=== PATIENT | female | born 1960 | race Caucasian/White ===

== ENCOUNTER 2017-09-05 14:51 | Inpatient (IN) | payer MEDICARE, OTHER ==
--- NOTE | 2017-09-05 15:19 | ED Physician Chart ---
ED Chief Complaint/HPI - Patient Information Date Seen:: 09/05/17 Time Seen:: 15:18 Chief Complaint:: Depression and suicidal History of Present Illness:: 57 yo female was brought from [facility] to ER for evaluation of increased depression with suicidal ideation. Allergies:: Allergies Allergy/AdvReac Type Severity Reaction Status Date / Time haloperidol [From Haldol] Allergy Verified 09/05/17 14:59 Penicillins Allergy Verified 09/05/17 14:59 Vitals:: Vital Signs - 8 hr 09/05/17 14:59 Temp 97.7 F HR 86 RR 18 BP 117/49 O2 Sat % 94 ED Review of Systems - Review of Systems General/Constitutional: No fever Skin: No bruising Head: No headache Eyes: No pain ENT: No nasal drainage Neck: No neck pain Cardio Vascular: No chest pain Pulmonary: No SOB GI: No nausea, No vomiting Psychiatric: Prior psych history, Depression Neurological: No focal symptoms ED Past Medical History - Past Medical History Past Medical History: Asthma/COPD, PUD/GERD, Dementia, Other (osteoporosis) Social History: Smoker, No Alcohol, No Drug Use Psychiatricy History: Schizophrenia, Bipolar, Dementia Family Medical History - Family Member Mother History Unknown: Yes ED Physical Exam - Physical Examination General/Constitutional: Awake Head: Atraumatic Eyes: PERRL Skin: No ecchymosis ENMT: Nasal exam nl Neck: No nuchal rigidity Respiratory: Clear to Auscultation Cardio Vascular: RRR, No murmur, gallop, rubs, NL S1 S2 GI: No tenderness/rebounding/guarding Extremities: Full ROM Neuro/Psych: No focal deficits ED Labs/Radiology/EKG Results - Lab Results Results: Laboratory Last Values WBC 6.9 Th/cmm (4.8-10.8) 09/05/17 15:33 RBC 4.36 Mil/cmm (3.80-5.10) 09/05/17 15:33 Hgb 13.8 gm/dL (12-16) 09/05/17 15:33 Hct 40.5 % (41.0-60) L 09/05/17 15:33 MCV 92.9 fl (81-100) 09/05/17 15:33 MCH 31.6 pg (27.0-31.0) H 09/05/17 15:33 MCHC Differential 34.0 pg (28.0-36.0) 09/05/17 15:33 RDW 12.3 % (11.5-20.0) 09/05/17 15:33 Plt Count 129 Th/cmm (150-400) L 09/05/17 15:33 MPV 9.1 fl 09/05/17 15:33 Neutrophils % 71.4 % (40.0-80.0) 09/05/17 15:33 Lymphocytes % 20.7 % (20.0-50.0) 09/05/17 15:33 Monocytes % 6.4 % (2.0-10.0) 09/05/17 15:33 Eosinophils % 1.5 % (0.0-5.0) 09/05/17 15:33 Basophils % 0.0 % (0.0-2.0) 09/05/17 15:33 Sodium 130 mEq/L (136-145) L 09/05/17 15:33 Potassium 4.3 mEq/L (3.5-5.1) 09/05/17 15:33 Chloride 98 mEq/L (98-107) 09/05/17 15:33 Carbon Dioxide 26.3 mEq/L (21.0-31.0) 09/05/17 15:33 Anion Gap 10.0 (7.0-16.0) 09/05/17 15:33 BUN 9 mg/dL (7-25) 09/05/17 15:33 Creatinine 0.3 mg/dL (0.6-1.2) L 09/05/17 15:33 Est GFR ( Amer) > 60.0 ml/min (>90) 09/05/17 15:33 Est GFR (Non-Af Amer) > 60.0 ml/min 09/05/17 15:33 BUN/Creatinine Ratio 30.0 09/05/17 15:33 Glucose 107 mg/dL (70-105) H 09/05/17 15:33 Calcium 9.6 mg/dL (8.6-10.3) 09/05/17 15:33 Total Bilirubin 0.3 mg/dL (0.3-1.0) 09/05/17 15:33 AST 21 U/L (13-39) 09/05/17 15:33 ALT 27 U/L (7-52) 09/05/17 15:33 Alkaline Phosphatase 139 U/L (34-104) H 09/05/17 15:33 Troponin I < 0.01 ng/mL (0.01-0.05) L 09/05/17 15:33 B-Natriuretic Peptide 18.5 pg/mL (5.0-100.0) 09/05/17 15:33 Total Protein 6.6 gm/dL (6.0-8.3) 09/05/17 15:33 Albumin 3.7 gm/dL (3.7-5.3) 09/05/17 15:33 Globulin 2.9 gm/dL 09/05/17 15:33 Albumin/Globulin Ratio 1.3 (1.0-1.8) 09/05/17 15:33 TSH 1.45 uIU/ml (0.34-5.60) 09/05/17 15:33 Urine Source RANDOM 09/05/17 15:42 Urine Color YELLOW 09/05/17 15:42 Urine Clarity CLOUDY (CLEAR) H 09/05/17 15:42 Urine pH 7.0 (4.6 - 8.0) 09/05/17 15:42 Ur Specific [place] 1.015 (1.005-1.030) 09/05/17 15:42 Urine Protein TRACE mg/dL (NEGATIVE) 09/05/17 15:42 Urine Glucose (UA) NEGATIVE mg/dL (NEGATIVE) 09/05/17 15:42 Urine Ketones NEGATIVE mg/dL (NEGATIVE) 09/05/17 15:42 Urine Blood LARGE (NEGATIVE) H 09/05/17 15:42 Urine Nitrate POSITIVE (NEGATIVE) H 09/05/17 15:42 Urine Bilirubin NEGATIVE (NEGATIVE) 09/05/17 15:42 Urine Urobilinogen 0.2 E.U./dL (0.2 - 1.0) 09/05/17 15:42 Ur Leukocyte Esterase LARGE (NEGATIVE) H 09/05/17 15:42 Urine RBC 25-50 /hpf (0-5) H 09/05/17 15:42 Urine WBC 50-100 /hpf (0-5) H 09/05/17 15:42 Ur Epithelial Cells OCCASIONAL /lpf (FEW) 09/05/17 15:42 Urine Bacteria MANY /hpf (NONE SEEN) H 09/05/17 15:42 Valproic Acid 29.7 ug/mL (50.0-100.0) L 09/05/17 15:33 - Radiology Results Results: CXR: No focal consolidation. Cardiomegaly. Left upper mediastinal soft tissue density - EKG Interpretations EKG Time:: 15:34 Rate & Rhythm: 76 bpm, Sinus rhythm [place]: normal P axis Intervals: IL 167, QRSD 106, QT 397 Comments:: non specific ST changes ED Assessment - Assessment General Assessment: UTI Hyponatremia COPD Abnormal CXR GERD Osteoporosis Dementia Assessment/Comments:: CBC, CMP, UA CXR, EKG Rocephin 1g IV NS 1L IV bolus Cleared for geropsych admission ED Septic Shock - . Is Septic Shock (SBP<90, OR Lactate>4 mmol\L) present?: No - <6hrs of presentation: Vital Signs: Vital Signs - 8 hr 09/05/17 14:59 Temp 97.7 F HR 86 RR 18 BP 117/49 O2 Sat % 94 ED Reassessment (Disposition) - Reassessment Reassessment Condition:: Improved - Patient Disposition Discharge/Transfer:: Gerprabhakar w/in this hosp Admitting Medical Physician:: Umesh De La Cruz Admitting Psych Physician:: Arturo Manriquez ED Discharge Plan - Patient Disposition Admit/Discharge/Transfer: Acute Care w/in this hosp Condition at Disposition: Stable
[2017-09-05 15:52] LABS: URINE MICROSCOPIC INDICATED? YES; URINE SOURCE RANDOM
[2017-09-05 15:54] LABS: URINE BILIRUBIN NEGATIVE (NEGATIVE); URINE BLOOD LARGE (NEGATIVE); URINE GLUCOSE (UA) NEGATIVE (NEGATIVE); URINE KETONE NEGATIVE (NEGATIVE); URINE LEUKOCYTE ESTERASE LARGE (NEGATIVE); URINE NITRATE POSITIVE (NEGATIVE); URINE PROTEIN TRACE mg/dL (NEGATIVE); URINE UROBILINOGEN 0.2 E.U./dL (0.2 - 1.0)
[2017-09-05 15:56] LABS: % EOSINOPHILS 1.5 % (0.0-5.0); % LYMPHOCYTES 20.7 % (20.0-50.0); % MONOCYTES 6.4 % (2.0-10.0); % NEUTROPHILS 71.4 % (40.0-80.0); EOSINOPHILE ABSOLUTE 0.1 Th/cmm (0.1-0.4); HEMATOCRIT 40.5 % (41.0-60); HEMOGLOBIN 13.8 gm/dL (12-16); LYMPHOCYTE ABSOLUTE 1.4 Th/cmm (1.5-3.0); MEAN CELL VOLUME 92.9 fl (81-100); MEAN CORPUSCULAR HEMOGLOBIN 31.6 pg (27.0-31.0); MEAN PLATELET VOLUME 9.1 fl; MONOCYTE ABSOLUTE 0.4 Th/cmm (0.3-1.0); PLATELET COUNT 129 Th/cmm (150-400); RED BLOOD COUNT 4.36 Mil/cmm (3.80-5.10); RED CELL DISTRIBUTION WIDTH 12.3 % (11.5-20.0); WHITE BLOOD COUNT 6.9 Th/cmm (4.8-10.8)
[2017-09-05 16:00] LABS: URINE CLARITY CLOUDY (CLEAR); URINE COLOR YELLOW
[2017-09-05 16:06] LABS: ALB/GLOB RATIO 1.3 (1.0-1.8); ALBUMIN 3.7 gm/dL (3.7-5.3); ALKALINE PHOSPHATASE 139 U/L (34-104); BILIRUBIN,TOTAL 0.3 mg/dL (0.3-1.0); BUN - UREA NITROGEN 9 mg/dL (7-25); CALCIUM SERUM 9.6 mg/dL (8.6-10.3); CARBON DIOXIDE 26.3 mEq/L (21.0-31.0); CHLORIDE 98 mEq/L (98-107); CREATININE - SERUM 0.3 mg/dL (0.6-1.2); GFR AFRICAN-AMERICAN > 60.0 ml/min (>90); GFR NON AFRICAN-AMERICAN > 60.0 ml/min; GLUCOSE 107 mg/dL (70-105); POTASSIUM SERUM 4.3 mEq/L (3.5-5.1); SGOT 21 U/L (13-39); SGPT/ALT 27 U/L (7-52); SODIUM SERUM 130 mEq/L (136-145); TOTAL PROTEIN,SERUM 6.6 gm/dL (6.0-8.3)
[2017-09-05 16:11] LABS: URINE RBC 25-50 /hpf (0-5)
[2017-09-05 16:12] LABS: URINE BACTERIA MANY /hpf (NONE SEEN); URINE EPITHELIAL CELLS OCCASIONAL /lpf (FEW); URINE WBC 50-100 /hpf (0-5)
[2017-09-05] MEDS ORDERED: Sodium Chloride 0.9% 1,000 ML IV ONE (16:12)
[2017-09-05] MEDS ORDERED: cefTRIAXone 1 GM in Sodium Chloride 0.9% 50 ML IV ONE (16:12)
[2017-09-05 18:35] VITALS: BP 140/69
[2017-09-05] MEDS ORDERED: Magnesium Hydroxide (MOM) 30 mL UDC PO PRN ×2 (18:37→21:23)
[2017-09-05] MEDS ORDERED: Maalox 30 mL Cup PO PRN (18:37)
[2017-09-05] MEDS ORDERED: APAP/Codeine 300 mg/30 mg Tab PO PRN ×2 (21:23)
[2017-09-05] MEDS ORDERED: Non-Formulary Item 1 EA (Albuterol Sulfate [Ventolin Hfa] 1 PUFF) IH PRN (21:23)
[2017-09-05] MEDS ORDERED: Albuterol/Ipratropium Neb 3 ML AERS HHN PRN (21:23)
[2017-09-05] MEDS ORDERED: [UNRECOGNIZED DRUG - OTHER] TP PRN (21:28)
[2017-09-06] MEDS ORDERED: Multivitamin Tab PO SCH (09:00)
--- NOTE | 2017-09-06 09:28 | Diagnostic Imaging Report ---
CHEST X-RAY: AP view INDICATION: Shortness of breath COMPARISON: None FINDINGS: Mild chronic lung changes are seen with no focal consolidation or effusions. Prominent soft tissue density of the left upper mediastinal border is noted. Mild cardiomegaly is noted. Degenerative changes of the spine are noted with scoliosis. IMPRESSION: No focal consolidation identified Prominent soft tissue density of the left upper mediastinal region. This may be due to an aortic aneurysm or other mediastinal mass lesions. Recommend further assessment with CT of the chest with IV contrast.
[2017-09-06] MEDS ORDERED: Menthol/Zinc Oxide Oint 113gm Tube TP PRN (11:00)
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
--- NOTE | 2017-09-06 17:52 | General Progress Note ---
Subjective - Review of Systems Service Date: 09/06/17 Events since last encounter: consult dictated talked to sister in [place] via phone' known about aneurysm 3 years ago, claimed she was not told about surgery will try transfer to tertiary facility Objective - Results Result Diagrams: 09/05/17 15:33 09/05/17 15:33 Recent Labs: Laboratory Last Values WBC 6.9 Th/cmm (4.8-10.8) 09/05/17 15:33 RBC 4.36 Mil/cmm (3.80-5.10) 09/05/17 15:33 Hgb 13.8 gm/dL (12-16) 09/05/17 15:33 Hct 40.5 % (41.0-60) L 09/05/17 15:33 MCV 92.9 fl (81-100) 09/05/17 15:33 MCH 31.6 pg (27.0-31.0) H 09/05/17 15:33 MCHC Differential 34.0 pg (28.0-36.0) 09/05/17 15:33 RDW 12.3 % (11.5-20.0) 09/05/17 15:33 Plt Count 129 Th/cmm (150-400) L 09/05/17 15:33 MPV 9.1 fl 09/05/17 15:33 Neutrophils % 71.4 % (40.0-80.0) 09/05/17 15:33 Lymphocytes % 20.7 % (20.0-50.0) 09/05/17 15:33 Monocytes % 6.4 % (2.0-10.0) 09/05/17 15:33 Eosinophils % 1.5 % (0.0-5.0) 09/05/17 15:33 Basophils % 0.0 % (0.0-2.0) 09/05/17 15:33 Sodium 130 mEq/L (136-145) L 09/05/17 15:33 Potassium 4.3 mEq/L (3.5-5.1) 09/05/17 15:33 Chloride 98 mEq/L (98-107) 09/05/17 15:33 Carbon Dioxide 26.3 mEq/L (21.0-31.0) 09/05/17 15:33 Anion Gap 10.0 (7.0-16.0) 09/05/17 15:33 BUN 9 mg/dL (7-25) 09/05/17 15:33 Creatinine 0.3 mg/dL (0.6-1.2) L 09/05/17 15:33 Est GFR ( Amer) > 60.0 ml/min (>90) 09/05/17 15:33 Est GFR (Non-Af Amer) > 60.0 ml/min 09/05/17 15:33 BUN/Creatinine Ratio 30.0 09/05/17 15:33 Glucose 107 mg/dL (70-105) H 09/05/17 15:33 Calcium 9.6 mg/dL (8.6-10.3) 09/05/17 15:33 Total Bilirubin 0.3 mg/dL (0.3-1.0) 09/05/17 15:33 AST 21 U/L (13-39) 09/05/17 15:33 ALT 27 U/L (7-52) 09/05/17 15:33 Alkaline Phosphatase 139 U/L (34-104) H 09/05/17 15:33 Troponin I < 0.01 ng/mL (0.01-0.05) L 09/05/17 15:33 B-Natriuretic Peptide 18.5 pg/mL (5.0-100.0) 09/05/17 15:33 Total Protein 6.6 gm/dL (6.0-8.3) 09/05/17 15:33 Albumin 3.7 gm/dL (3.7-5.3) 09/05/17 15:33 Globulin 2.9 gm/dL 09/05/17 15:33 Albumin/Globulin Ratio 1.3 (1.0-1.8) 09/05/17 15:33 TSH 1.45 uIU/ml (0.34-5.60) 09/05/17 15:33 Urine Source RANDOM 09/05/17 15:42 Urine Color YELLOW 09/05/17 15:42 Urine Clarity CLOUDY (CLEAR) H 09/05/17 15:42 Urine pH 7.0 (4.6 - 8.0) 09/05/17 15:42 Ur Specific [place] 1.015 (1.005-1.030) 09/05/17 15:42 Urine Protein TRACE mg/dL (NEGATIVE) 09/05/17 15:42 Urine Glucose (UA) NEGATIVE mg/dL (NEGATIVE) 09/05/17 15:42 Urine Ketones NEGATIVE mg/dL (NEGATIVE) 09/05/17 15:42 Urine Blood LARGE (NEGATIVE) H 09/05/17 15:42 Urine Nitrate POSITIVE (NEGATIVE) H 09/05/17 15:42 Urine Bilirubin NEGATIVE (NEGATIVE) 09/05/17 15:42 Urine Urobilinogen 0.2 E.U./dL (0.2 - 1.0) 09/05/17 15:42 Ur Leukocyte Esterase LARGE (NEGATIVE) H 09/05/17 15:42 Urine RBC 25-50 /hpf (0-5) H 09/05/17 15:42 Urine WBC 50-100 /hpf (0-5) H 09/05/17 15:42 Ur Epithelial Cells OCCASIONAL /lpf (FEW) 09/05/17 15:42 Urine Bacteria MANY /hpf (NONE SEEN) H 09/05/17 15:42 Valproic Acid 29.7 ug/mL (50.0-100.0) L 09/05/17 15:33 - Physical Exam Vitals and I&O: Vital Signs Temp 97.6 F 09/06/17 15:54 Pulse 92 09/06/17 15:54 Resp 20 09/06/17 15:54 BP 115/58 09/06/17 15:54 Pulse Ox 97 09/06/17 15:54 Intake & Output 09/05/17 09/06/17 09/06/17 18:59 06:59 18:59 Intake Total 480 1500 Balance 480 1500 Weight (lbs) 70.307 kg Intake: Oral 480 1500 Other: # Voids 2 4 # Bowel Movements 1 Weight Source Estimated Active Medications: Current Medications Acetaminophen (Tylenol) 650 mg PO Q4HR PRN PRN Reason: Mild Pain / Temp above 100 Stop: 11/04/17 18:36 Acetaminophen (Tylenol) 325 mg PO Q4HR PRN PRN Reason: MILD PAIN Stop: 11/04/17 21:22 Acetaminophen/Codeine Phosphate (Tylenol W/Codeine #3) 1 tab PO Q4HR PRN PRN Reason: MOD PAIN Stop: 11/04/17 21:22 Acetaminophen/Codeine Phosphate (Tylenol W/Codeine #3) 2 tab PO Q4HR PRN PRN Reason: Severe Pain Stop: 11/04/17 21:22 Al Hydrox/Mg Hydrox/Simethicone (Maalox) 30 ml PO Q4HR PRN PRN Reason: GI DISTRESS Stop: 11/04/17 18:36 Albuterol/Ipratropium (Duoneb Neb) 3 ml HHN Q4HRT PRN PRN Reason: SOB/COPD Stop: 11/04/17 21:22 Calamine/Phenol (Calmoseptine) 1 appl TP QSHIFT PRN PRN Reason: INCONTINENCE MAINTENANCE Stop: 11/05/17 10:59 Docusate Sodium (Colace) 100 mg PO BID [facility] Stop: 11/05/17 08:59 Last Admin: 09/06/17 17:24 Dose: Not Given Famotidine (Pepcid) 20 mg PO BID [facility] Stop: 11/05/17 08:59 Last Admin: 09/06/17 17:22 Dose: 20 mg Gabapentin (Neurontin) 600 mg PO Q6HR NAS Stop: 11/05/17 00:00 Last Admin: 09/06/17 17:22 Dose: 600 mg Lorazepam (Ativan) 0.5 mg PO Q4H PRN; Protocol PRN Reason: Anxiety Stop: 11/04/17 18:36 Lorazepam (Ativan) 2 mg IVP Q4HR PRN; Protocol PRN Reason: Agitation Stop: 11/05/17 17:46 Magnesium Hydroxide (Milk Of Magnesia) 30 ml PO HS PRN PRN Reason: Constipation Magnesium Hydroxide (Milk Of Magnesia) 30 ml PO HS PRN PRN Reason: Constipation Stop: 11/04/17 21:22 Methocarbamol (Robaxin) 500 mg PO TID [facility] Stop: 11/05/17 08:59 Last Admin: 09/06/17 13:21 Dose: 500 mg Multivitamins/Vitamin C (Theragran) 1 tab PO DAILY [facility] Stop: 11/05/17 08:59 Last Admin: 09/06/17 09:36 Dose: 1 tab Risperidone (Risperdal) 2 mg PO BID [facility]; Protocol Stop: 11/05/17 16:59 Last Admin: 09/06/17 17:21 Dose: 2 mg Senna (Senna) 17.2 mg PO BID [facility] Stop: 11/05/17 08:59 Last Admin: 09/06/17 17:24 Dose: Not Given Valproate Sodium (Depakene) 250 mg PO BID NAS; Protocol Stop: 11/05/17 08:59 Last Admin: 09/06/17 17:21 Dose: 250 mg Zolpidem Tartrate (Ambien) 5 mg PO HS PRN PRN Reason: Insomnia Stop: 11/04/17 18:36 Assessment/Plan - Problem List Patient Problems: All Active Problems DEPRESSION WITH SUICIDAL IDEATION (Acute)
--- NOTE | 2017-09-06 18:07 | History & Physical ---
ADMIT DATE: 09/06/2017 VASCULAR CONSULTATION REFERRING PHYSICIAN: Dr. Manriquez. REASON FOR CONSULTATION: Thoracic aortic aneurysm. Thank you for referring this patient to me. HISTORY OF PRESENT ILLNESS: This is a 57-year-old female who comes from a [facility] and transferred here because of depression and suicidal ideations. Laboratory studies on admission are essentially normal except for large blood clots in the urine. The patient underwent a chest x-ray and a CT scan of the chest without IV contrast and this shows a 6 cm ascending aortic aneurysm. The patient smokes cigarettes. The sister was called in [place] and had been told about this condition 3 years ago. She had not been told about doing any surgical vascular intervention on this at all. The patient denies any chest pain, likewise. CURRENT MEDICATIONS: Albuterol, famotidine, gabapentin, lorazepam, methocarbamol, Risperdal, Ambien. PHYSICAL EXAMINATION: VITAL SIGNS: Blood pressure is 115/60. Heart rate is normal. GENERAL: The patient insists on smoking. Seems to be alert, but confused. She denied having been told about this aneurysm in the past. The sister is willing to sign a consent power of bull gang worker, but she has not been designated. The data warehouse manager has made phone calls to transfer the patient to an outside facility where a stent placement can be done. At this point, only [facility] has been sent the information as the others did not agree to accepting the CT scan report. The sister wants to consider [place] and as the patient had been there in the past. We will follow with you. In the meantime, blood pressure will be monitored in ICU or Tele JOB# [id number] NICKIE
--- NOTE | 2017-09-06 22:23 | Consultation ---
DATE OF CONSULTATION: 09/05/2017 INTERNAL MEDICINE CONSULTATION The patient is a 57-year-old female patient of mine transferred from snf with suicidal ideation. PAST MEDICAL HISTORY: Chronic respiratory failure, COPD, peptic ulcer disease, gastritis, arthritis, osteoporosis, chronic pain syndrome. SOCIAL HISTORY: A long history of smoking. No history of drug or alcohol abuse. OBSTETRIC HISTORY: P2 +0, menses postmenopausal. REVIEW OF SYSTEMS: The patient has a chronic shortness of breath. The patient is a heavy smoker, chronic cough, no fever, no nausea, no vomiting. Chronic pain syndrome. PHYSICAL EXAMINATION: GENERAL: Average female in no obvious respiratory distress. VITAL SIGNS: Include a blood pressure of 110/70, heart rate 80, respiration rate of 18. SKIN: Show no cellulitis. HEENT: Normal conjunctivae. NECK: Supple. LUNGS: Shows bilateral rhonchi, has crepitation, no bronchial breathing. HEART: First and second present. ABDOMEN: Soft, minimal epigastric tenderness. Bowel sounds are good. EXTREMITIES: Show arthritis. NEUROLOGIC: The patient has no focal motor deficits. LABORATORY DATA: Include WBC of 6.9, hemoglobin 13.8, hematocrit 40.5, platelet count of 129. Sodium 130, potassium 4.3, chloride 98, bicarbonate 26.3, BUN 9, creatinine 0.3. Blood sugar of 107. LFTs are essentially unremarkable except alkaline phosphate 139. Troponins are negative. MEDICAL DIAGNOSES: Include COPD, peptic ulcer disease, gastritis, arthritis, osteoporosis, peripheral neuropathy, hyponatremia. TREATMENT PLAN: The patient's current medicines include bronchodilator treatment, Robaxin, milk of magnesia, Neurontin, Pepcid, Colace, Mylanta and Tylenol No. 3. JOB# [id number]
--- NOTE | 2017-09-07 10:36 | Diagnostic Imaging Report ---
Exam: CT examination of the chest. HISTORY: Mediastinal mass. Findings: Multiple contiguous thin section of the chest were obtained from thoracic outlet to the upper abdomen without the administration of contrast which he of therefore the study is limited. The study demonstrates normal aeration of lung parenchyma there is no evidence for active pulmonic is trace or effusions. There is evidence for aortic aneurysm extending from the descending aorta measuring 5 cm diameter. The study is limited without contrast administration. No abnormal adenopathy is noted but difficult appreciated. Bony thorax intact. The visualization of the upper abdomen demonstrates evidence for previous cholecystectomy. Superimposed COPD changes are noted. IMPRESSION 1. COPD changes Aortic aneurysm ascending aorta to 5 cm diameter, clinical correlation and follow-up exam with contrast material might be helpful.
== END 2017-09-06 18:43 | DRG 885 ==
LOC: ER 14:51 → GERO2 17:20 → GERO 09-06 14:27
PROVIDERS: ADMIT Psychiatry & Neurology Psychiatry; ATTEND Psychiatry & Neurology Psychiatry
DX: F20.0 Paranoid schizophrenia (principal); J96.10 Chronic respiratory failure, unspecified whether with hypoxia or hypercapnia; N39.0 Urinary tract infection, site not specified; E87.1 Hypo-osmolality and hyponatremia; J44.9 Chronic obstructive pulmonary disease, unspecified; K21.9 Gastro-esophageal reflux disease without esophagitis; F03.90 Unspecified dementia, unspecified severity, without behavioral disturbance, psychotic disturbance, mood disturbance, and anxiety; M81.0 Age-related osteoporosis without current pathological fracture; F17.210 Nicotine dependence, cigarettes, uncomplicated; K27.9 Peptic ulcer, site unspecified, unspecified as acute or chronic, without hemorrhage or perforation; M19.90 Unspecified osteoarthritis, unspecified site; G89.4 Chronic pain syndrome; K29.70 Gastritis, unspecified, without bleeding; G62.9 Polyneuropathy, unspecified; Z88.0 Allergy status to penicillin
CPT/HCPCS: 36415-UA; 71045-TC; 71250-TC; 80053-TC; 80164-TC; 81001-TC; 83880-TC; 84443-TC; 84484-TC; 85025-TC; 87086-90; 93005; J0696; J7030

== ENCOUNTER 2017-09-06 18:56 | Inpatient (IN) | payer MEDICARE, OTHER ==
[2017-09-06 21:41] VITALS: BP 124/69
[2017-09-06] MEDS ORDERED: Albuterol/Ipratropium Neb 3 ML AERS HHN PRN (21:55)
[2017-09-06] MEDS ORDERED: APAP/Codeine 300 mg/30 mg Tab PO PRN (22:02)
[2017-09-07 05:22] LABS: % BASOPHILS 0.7 % (0.0-2.0); % EOSINOPHILS 3.4 % (0.0-5.0); % LYMPHOCYTES 37.1 % (20.0-50.0); % NEUTROPHILS 50.8 % (40.0-80.0); BASOPHILE ABSOLUTE 0.1 Th/cumm (0-0.2); EOSINOPHILE ABSOLUTE 0.3 Th/cmm (0.1-0.4); HEMOGLOBIN 13.5 gm/dL (12-16); LYMPHOCYTE ABSOLUTE 2.7 Th/cmm (1.5-3.0); MEAN CELL VOLUME 93.4 fl (81-100); MEAN CORPUSCULAR HEMOGLOBIN 31.5 pg (27.0-31.0); MEAN CORPUSCULAR HGB CONC 33.7 pg (28.0-36.0); MEAN PLATELET VOLUME 8.5 fl; MONOCYTE ABSOLUTE 0.6 Th/cmm (0.3-1.0); NEUTROPHILE ABSOLUTE 3.7 Th/cmm (1.8-8.0); PLATELET COUNT 208 Th/cmm (150-400); RED BLOOD COUNT 4.28 Mil/cmm (3.80-5.10); RED CELL DISTRIBUTION WIDTH 12.1 % (11.5-20.0); WHITE BLOOD COUNT 7.4 Th/cmm (4.8-10.8)
[2017-09-07 05:36] LABS: ANION GAP 9.4 (7.0-16.0); BUN - UREA NITROGEN 8 mg/dL (7-25); CALCIUM SERUM 9.3 mg/dL (8.6-10.3); CARBON DIOXIDE 27.8 mEq/L (21.0-31.0); CHLORIDE 100 mEq/L (98-107); CREATININE - SERUM 0.3 mg/dL (0.6-1.2); GFR AFRICAN-AMERICAN > 60.0 ml/min (>90); GFR NON AFRICAN-AMERICAN > 60.0 ml/min; GLUCOSE 85 mg/dL (70-105); POTASSIUM SERUM 4.2 mEq/L (3.5-5.1); SODIUM SERUM 133 mEq/L (136-145)
--- NOTE | 2017-09-07 07:14 | Consultation ---
DATE OF CONSULTATION: 09/06/2017 HISTORY OF PRESENT ILLNESS: This 57-year-old female was seen and examined at the courtesy of Dr. De La Cruz and Dr. Ramirez. This patient was in [facility]. Chest x-ray was done and it was found that she has a large ascending aortic aneurysm. CAT scan of the chest without contrast was done, which also confirmed the presence of a 6 cm aortic aneurysm. Apparently, according to history available the patient is known to have this for the last 3 years. The patient also has history of asthma or COPD, history of polyneuropathy, history of psych problems, bipolar disorder and dementia. No proper history is available from the patient. Information obtained from the chart. Apparently, there was no chest pains, no shortness of breath, no palpitations, no dizziness, no syncope, no seizures, no history of abdominal pain. No history of nausea or vomiting. No history of hematemesis. No history of melena, no history of bleeding per rectum. No change in bowel habits. PAST MEDICAL HISTORY: Not much available. FAMILY HISTORY: Not much available. PHYSICAL EXAMINATION: VITAL SIGNS: Heart rate 66, blood pressure 95/49, temperature 97.8, respirations 16, O2 saturation 94 on room air. SKIN: Normal. HEAD: Normocephalic. EYES: Conjunctivae were pink. There is no icterus in the eyes. Pupils reacting to light. NECK: There was no increased jugular venous distention, no thyromegaly, no lymphadenopathy. Carotids equal on both sides. CHEST: Bilaterally symmetrical. Moves well with respiration. Respiratory movements equal both sides. Trachea is central. There is note to percussion. Breath sounds, no rales rhonchi. CARDIOVASCULAR SYSTEM: PMI not well localized and no positional thrill. No parasternal heave. S1 normal, S2 physiologic. There were no S3, no rub. ABDOMEN: Soft, no tenderness, no rigidity, no guarding and no organomegaly. Bowel sounds normal. EXTREMITIES: There is no calf tenderness. Peripheral pulses are diminished. LABORATORY DATA: On reviewing the labs, WBC 6.9, hemoglobin 13.8, hematocrit 40.5, platelet count 129. Sodium 130, potassium 4.3, chloride 98, carbon dioxide of 26.3, BUN 9, creatinine 0.3, glucose 107. BNP was 18.5. Troponin was less than 0.01. TSH was 1.45. Urine shows lot of WBCs. IMPRESSION: Ascending aortic aneurysm, chronic obstructive pulmonary disease, history of asthma, polyneuropathy, hyponatremia, thrombocytopenia, bipolar disorder, psych problems, dementia. PLAN: At present, the patient is hemodynamically stable. Vital signs are okay. Our idea is to keep the heart rate on the lower side as well as the blood pressure also under 120 systolic. We will get a lipid profile. We will also get echocardiogram. Repeat EKG in a.m. I think arrangement are already being made to transfer the patient to tertiary center like [facility] for possible surgical intervention. JOB# [id number]
[2017-09-07 07:43] LABS: CHOLESTEROL 137 mg/dL (<200); HDL -HIGH DENSITY LIPOPROTEIN 53 mg/dL (23-92); TRIGLYCERIDES 125 mg/dL (<150)
--- NOTE | 2017-09-07 09:20 | General Progress Note ---
Subjective - Review of Systems Service Date: 09/07/17 Events since last encounter: VS stable, no chest pain for referral to [facility] tomorrow to see Dr. Vickers who I talked to yesterday regarding this patient Objective - Results Result Diagrams: 09/07/17 05:05 09/07/17 05:05 Recent Labs: Laboratory Last Values WBC 7.4 Th/cmm (4.8-10.8) 09/07/17 05:05 RBC 4.28 Mil/cmm (3.80-5.10) 09/07/17 05:05 Hgb 13.5 gm/dL (12-16) 09/07/17 05:05 Hct 40.0 % (41.0-60) L 09/07/17 05:05 MCV 93.4 fl (81-100) 09/07/17 05:05 MCH 31.5 pg (27.0-31.0) H 09/07/17 05:05 MCHC Differential 33.7 pg (28.0-36.0) 09/07/17 05:05 RDW 12.1 % (11.5-20.0) 09/07/17 05:05 Plt Count 208 Th/cmm (150-400) 09/07/17 05:05 MPV 8.5 fl 09/07/17 05:05 Neutrophils % 50.8 % (40.0-80.0) 09/07/17 05:05 Lymphocytes % 37.1 % (20.0-50.0) 09/07/17 05:05 Monocytes % 8.0 % (2.0-10.0) 09/07/17 05:05 Eosinophils % 3.4 % (0.0-5.0) 09/07/17 05:05 Basophils % 0.7 % (0.0-2.0) 09/07/17 05:05 Sodium 133 mEq/L (136-145) L 09/07/17 05:05 Potassium 4.2 mEq/L (3.5-5.1) 09/07/17 05:05 Chloride 100 mEq/L (98-107) 09/07/17 05:05 Carbon Dioxide 27.8 mEq/L (21.0-31.0) 09/07/17 05:05 Anion Gap 9.4 (7.0-16.0) 09/07/17 05:05 BUN 8 mg/dL (7-25) 09/07/17 05:05 Creatinine 0.3 mg/dL (0.6-1.2) L 09/07/17 05:05 Est GFR ( Amer) > 60.0 ml/min (>90) 09/07/17 05:05 Est GFR (Non-Af Amer) > 60.0 ml/min 09/07/17 05:05 BUN/Creatinine Ratio 26.7 09/07/17 05:05 Glucose 85 mg/dL (70-105) 09/07/17 05:05 Calcium 9.3 mg/dL (8.6-10.3) 09/07/17 05:05 Triglycerides 125 mg/dL (<150) 09/07/17 05:05 Cholesterol 137 mg/dL (<200) 09/07/17 05:05 LDL Cholesterol Direct 66 mg/dL (75-193) L 09/07/17 05:05 HDL Cholesterol 53 mg/dL (23-92) 09/07/17 05:05 - Physical Exam Vitals and I&O: Vital Signs Temp 97.8 F 09/07/17 04:00 Pulse 68 09/07/17 07:37 Resp 16 09/07/17 07:37 BP 102/54 09/07/17 06:00 Pulse Ox 93 09/07/17 07:37 Intake & Output 09/06/17 09/07/17 09/07/17 18:59 06:59 18:59 Intake Total 350 Balance 350 Weight (lbs) 67.585 kg Intake: Oral 350 Other: # Voids 2 # Bowel Movements 0 Weight Source Bedscale Active Medications: Current Medications Acetaminophen/Codeine Phosphate (Tylenol W/Codeine #3) 1 tab PO Q4H PRN PRN Reason: MODERATE PAIN Stop: 11/05/17 22:01 Albuterol/Ipratropium (Duoneb Neb) 3 ml HHN Q4H PRN PRN Reason: Shortness of Breath Stop: 11/05/17 21:54 Gabapentin (Neurontin) 600 mg PO Q6HR NAS Stop: 11/06/17 00:00 Last Admin: 09/07/17 06:15 Dose: 600 mg Lorazepam (Ativan) 2 mg IVP Q4H PRN; Protocol PRN Reason: AGITATION Stop: 11/05/17 21:58 Last Admin: 09/07/17 06:56 Dose: 2 mg Lorazepam (Ativan) 0.5 mg PO Q4H PRN; Protocol PRN Reason: Anxiety Stop: 11/06/17 07:29 Zolpidem Tartrate (Ambien) 5 mg PO HS PRN PRN Reason: Insomnia Stop: 11/05/17 20:40
[2017-09-07] MEDS: Docusate Sodium/Senna Tab PO SCH (16:55)
--- NOTE | 2017-09-07 17:19 | History & Physical ---
ADMIT DATE: 09/07/2017 HISTORY OF PRESENT ILLNESS: The patient is a 57-year-old female initially admitted to [facility] for suicidal delusions. PAST MEDICAL HISTORY: Significant for COPD due to prolonged smoking, coronary artery disease, peptic ulcer disease, gastritis, arthritis, osteoporosis, chronic pain syndrome and kyphosis. SOCIAL HISTORY: Prior history of smoking. MEDICATIONS: The patient on multiple pain medicines and psych medicines as prescribed by the psychiatrist. During a routine workup, the patient was found to have on chest x-ray dilatation of the aorta. A CAT scan was requested by me. CAT scan revealed the patient had 6 cm of aortic aneurysm. A stat consultation with Dr. Ramirez was requested for. Dr. Ramirez saw the patient and my exchange was informed. The patient was transferred to ICU yesterday. The nurse from ICU called me and informed me that Dr. Ramirez has transferred the patient from [facility] to ICU. I requested him not to continue all the medicines as from [facility]. I also requested Dr. Ramirez need to talk to me. I did discuss extensively the case with Dr. Ramirez. Both of us are agreed that the patient needed definitive treatment for aortic aneurysm. Dr. Ramirez informed me that he did talk to a physician at [facility] for further treatment or management for aortic aneurysm. He also talked with her sister in [place] and she agreed. The patient does have an appointment at [facility] with a vascular surgeon as an outpatient. After that, I called back to the nursing ICU around 8:00 that I need patient to be under the care of Dr. Jane Marquez who is the head up operator helper for cardiac status evaluation and management of any blood pressure and meanwhile, the patient was supposed to continue all the medicines. Also, I did discuss with the RN in charge, Cj. I discussed with him twice yesterday and twice today that patient needs a more definitive care since hospital has no capability of aortic aneurysm surgery and he did agree he did try the patient to be transferred to [facility] as well as [facility], which he has told me has no bed. Meanwhile, he will keep on trying for the transfer to the tertiary hospital for further management. The patient does have an appointment according to him as an outpatient again with doctor, physician at [facility]. With multiple discussions with Cj as well as ICU nurse, I was not informed at all that the patient did not receive any medicine pill, Cj informed me at 1:00 today at 6:10 that the patient did not receive any medicines in ICU except Ativan p.r.n. I called back ICU nurse and discussed with the Marci who is a nurse in charge. Again, I was informed, yes the patient did not receive any other medicines which were given to her in [facility]. I have left several messages to Dr. Miller who is a chief ii dispatcher as well as I also called the elevator operator to call [facility] and discuss with me that why patient did not receive any medicines at ICU. Also, I discussed with Dr. Cronin who is a chief medical physicist and ____ he will look into the matter why the patient did not receive any medicines meanwhile. PHYSICAL EXAMINATION: GENERAL: The patient is in ICU. The patient had no obvious respiratory distress. VITAL SIGNS: Blood pressure is 112/62, heart rate of 88, respiration rate of 18. SKIN: Show no obvious cellulitis. HEENT: Normal conjunctivae. NECK: Supple. LUNGS: Show occasional rhonchi, occasional crepitation, no bronchial breathing. HEART: First and second present. ABDOMEN: Soft, minimal epigastric tenderness. Bowel sounds good. EXTREMITIES: Show arthritis. NEUROLOGIC: The patient has no focal motor deficits. CONSULTATIONS: Include Cardiology consultation, Dr. Jane Marquez. Surgical consult, Dr. Ramirez. CURRENT MEDICATIONS: Include Pepcid 20 mg twice a day, Neurontin 600 mg every 6 hours, Ativan as requested by psychiatrist p.r.n., psychiatrist is Dr. Manriquez. The patient is on Robaxin 500 mg 3 times a day, risperidone 2 mg twice a day, Depakene 250 mg twice a day, Ambien 5 mg at bedtime p.r.n. Again, the patient has an aortic aneurysm, which will need to have a more definitive treatment since 6 cm and case management director and Cj are working on transferring the patient to appropriate health care facility where the patient can have more definitive treatment. JOB# [id number]
[2017-09-07] MEDS ORDERED: APAP/Codeine 300 mg/30 mg Tab PO PRN (20:00)
[2017-09-07] MEDS ORDERED: Maalox 30 mL Cup PO PRN (21:00)
[2017-09-07] MEDS: Menthol/Zinc Oxide Oint 113gm Tube TP PRN ×2 (23:24→23:39)
[2017-09-08] MEDS: Docusate Sodium/Senna Tab PO SCH ×2 (08:25→17:07)
--- NOTE | 2017-09-08 08:55 | General Progress Note ---
Subjective - Review of Systems Service Date: 09/08/17 Events since last encounter: BP within normal range without meds will have Case management call Krystyna Spivey for outpatient appointment with [facility], Dr. Vickers, surgeon aware of referral Objective - Results Result Diagrams: 09/07/17 05:05 09/07/17 05:05 Recent Labs: Laboratory Last Values WBC 7.4 Th/cmm (4.8-10.8) 09/07/17 05:05 RBC 4.28 Mil/cmm (3.80-5.10) 09/07/17 05:05 Hgb 13.5 gm/dL (12-16) 09/07/17 05:05 Hct 40.0 % (41.0-60) L 09/07/17 05:05 MCV 93.4 fl (81-100) 09/07/17 05:05 MCH 31.5 pg (27.0-31.0) H 09/07/17 05:05 MCHC Differential 33.7 pg (28.0-36.0) 09/07/17 05:05 RDW 12.1 % (11.5-20.0) 09/07/17 05:05 Plt Count 208 Th/cmm (150-400) 09/07/17 05:05 MPV 8.5 fl 09/07/17 05:05 Neutrophils % 50.8 % (40.0-80.0) 09/07/17 05:05 Lymphocytes % 37.1 % (20.0-50.0) 09/07/17 05:05 Monocytes % 8.0 % (2.0-10.0) 09/07/17 05:05 Eosinophils % 3.4 % (0.0-5.0) 09/07/17 05:05 Basophils % 0.7 % (0.0-2.0) 09/07/17 05:05 Sodium 133 mEq/L (136-145) L 09/07/17 05:05 Potassium 4.2 mEq/L (3.5-5.1) 09/07/17 05:05 Chloride 100 mEq/L (98-107) 09/07/17 05:05 Carbon Dioxide 27.8 mEq/L (21.0-31.0) 09/07/17 05:05 Anion Gap 9.4 (7.0-16.0) 09/07/17 05:05 BUN 8 mg/dL (7-25) 09/07/17 05:05 Creatinine 0.3 mg/dL (0.6-1.2) L 09/07/17 05:05 Est GFR ( Amer) > 60.0 ml/min (>90) 09/07/17 05:05 Est GFR (Non-Af Amer) > 60.0 ml/min 09/07/17 05:05 BUN/Creatinine Ratio 26.7 09/07/17 05:05 Glucose 85 mg/dL (70-105) 09/07/17 05:05 Calcium 9.3 mg/dL (8.6-10.3) 09/07/17 05:05 Triglycerides 125 mg/dL (<150) 09/07/17 05:05 Cholesterol 137 mg/dL (<200) 09/07/17 05:05 LDL Cholesterol Direct 66 mg/dL (75-193) L 09/07/17 05:05 HDL Cholesterol 53 mg/dL (23-92) 09/07/17 05:05 - Physical Exam Vitals and I&O: Vital Signs Temp 96.7 F 09/08/17 08:00 Pulse 68 09/08/17 08:00 Resp 15 09/08/17 08:00 BP 139/73 09/08/17 08:00 Pulse Ox 94 09/08/17 08:00 Intake & Output 09/07/17 09/08/17 09/08/17 18:59 06:59 18:59 Intake Total 800 800 Balance 800 800 Weight (lbs) 67.585 kg 67.585 kg Intake: Oral 800 800 Other: # Voids 3 3 # Bowel Movements 0 1 Stool Characteristics Soft Brown Weight Source Bedscale Bedscale Active Medications: Current Medications Acetaminophen/Codeine Phosphate (Tylenol W/Codeine #3) 1 tab PO Q4H PRN PRN Reason: MODERATE PAIN Stop: 11/05/17 22:01 Acetaminophen/Codeine Phosphate (Tylenol W/Codeine #3) 2 tab PO Q4H PRN PRN Reason: Severe Pain Al Hydrox/Mg Hydrox/Simethicone (Maalox) 30 ml PO HS PRN PRN Reason: Abdominal Pain Stop: 11/06/17 20:59 Albuterol/Ipratropium (Duoneb Neb) 3 ml HHN Q4H PRN PRN Reason: Shortness of Breath Stop: 11/05/17 21:54 Calamine/Phenol (Calmoseptine) 1 appl TP QSHIFT PRN PRN Reason: Dry Skin Stop: 11/06/17 19:59 Last Admin: 09/07/17 23:39 Dose: 1 appl Famotidine (Pepcid) 20 mg PO BID NAS Stop: 11/06/17 16:59 Last Admin: 09/08/17 08:25 Dose: 20 mg Gabapentin (Neurontin) 600 mg PO Q6HR NAS Stop: 11/06/17 00:00 Last Admin: 09/08/17 05:40 Dose: 600 mg Lorazepam (Ativan) 2 mg IVP Q4H PRN; Protocol PRN Reason: AGITATION Stop: 11/05/17 21:58 Last Admin: 09/07/17 06:56 Dose: 2 mg Lorazepam (Ativan) 0.5 mg PO Q4H PRN; Protocol PRN Reason: Anxiety Stop: 11/06/17 07:29 Last Admin: 09/08/17 06:26 Dose: 0.5 mg Methocarbamol (Robaxin) 500 mg PO TID NAS Stop: 11/06/17 16:59 Last Admin: 09/08/17 08:26 Dose: Not Given Multivitamins/Vitamin C (Theragran) 1 tab PO DAILY NAS Stop: 11/07/17 08:59 Last Admin: 09/08/17 08:25 Dose: 1 tab Risperidone (Risperdal) 2 mg PO BID NAS; Protocol Stop: 11/06/17 16:59 Last Admin: 09/08/17 08:26 Dose: 2 mg Sennosides (Senna Plus 50 Mg-8.6 Mg) 1 tab PO BID NAS Stop: 11/06/17 16:59 Last Admin: 09/08/17 08:25 Dose: 1 tab Valproate Sodium (Depakene) 250 mg PO BID NAS; Protocol Stop: 11/06/17 16:59 Last Admin: 09/08/17 08:25 Dose: 250 mg Zolpidem Tartrate (Ambien) 5 mg PO HS PRN PRN Reason: Insomnia Stop: 11/05/17 20:40
[2017-09-08] MEDS ORDERED: Multivitamin Tab PO SCH (09:00)
--- NOTE | 2017-09-08 16:21 | Cardiology ---
09/07/[address] Umesh De La Cruz. PROCEDURE: Echocardiogram. M-MODE ECHOCARDIOGRAM: Mitral valve, anterior leaflet of mitral valve shows normal excursion, EF velocity. Posterior leaflet of mitral valve shows normal excursion. Left ventricular posterior wall shows increased thickness, normal excursion. Interventricular septum shows increased thickness, normal excursion, hypertrophy of the left ventricle, ejection fraction 50%. Left atrium normal. Aortic root dilated. Aortic leaflets, normal excursion. CONCLUSION: Dilated aortic root. Ejection fraction 50%, hypertrophy of the left ventricle. 2D ECHO: Long axis view shows normal sized left ventricle with hypertrophy of the left ventricle. Left atrium normal. Aortic root dilated. Aortic leaflets, normal. Short axis view of mitral valve normal. Short axis view of aortic valve normal. Apical four chamber view showed normal sized left ventricle with hypertrophy of the left ventricle. Left atrium normal. Right ventricular cavity, right atrium normal, no pericardial effusion. CONCLUSION: Hypertrophy of the left ventricle, ejection fraction 50%, dilated aortic root. Doppler study shows mild mitral regurgitation, moderate tricuspid regurgitation, mild aortic regurgitation. [facility]# [id number]
--- NOTE | 2017-09-08 20:49 | Progress Notes ---
DATE: 09/08/2017 PSYCHIATRIC PROGRESS NOTE SUBJECTIVE: Staff was spoken to. The patient is interviewed. Mood is irritable. Affect is constricted. The patient is stating that she does not have any aneurysm. She says that I am mistaking her for a different patient and she should not be in here. She has to be discharged back to the facility. The patient has been informed about the aneurysm and staff was trying to get her to the [facility] or any other facility that is willing to do the surgery, but the patient does not believe that she has any of these issues. The patient has no insight into her illness. ASSESSMENT: The patient is still paranoid. PLAN: To continue the patient with supportive therapy. Encouraged the patient to verbalize the concerns rather than to act out. JOB# [id number]
--- NOTE | 2017-09-09 21:16 | Discharge Summary ---
DATE OF DISCHARGE: 09/08/2017 HOSPITAL COURSE: The patient, initially admitted to [facility] for suicidal ideation. Routine workup revealed the patient having a thoracic aortic aneurysm at [address] Ramirez. The patient was transferred to ICU. The patient has no history of hypertension. Blood pressure remained stable. Multiple attempts were made to transfer the patient to [place] as well as [facility] for the management of aortic aneurysm. The patient is alert and awake and makes her own decision and patient says she does not want any surgery to be done. She is very high risk in any case due to chronic respiratory failure with chronic obstructive pulmonary disease. The patient states she is asymptomatic, does not feel anything and does not want any further surgery or any surgical options. Dr. Ramirez also contacted her sister out of town and at this time, the patient insisted on going back to her assisted fdc, post-acute. We will arrange again. post-acute will be given instruction to follow up with a surgeon as an outpatient in [place] and the patient can make her decision again regarding the aortic surgery. JOB# [id number]
== END 2017-09-08 20:50 | DRG 300 ==
LOC: ICU 18:56
PROVIDERS: ADMIT Internal Medicine; ATTEND Internal Medicine
DX: I71.2 Thoracic aortic aneurysm, without rupture (principal); E87.1 Hypo-osmolality and hyponatremia; J96.10 Chronic respiratory failure, unspecified whether with hypoxia or hypercapnia; J44.9 Chronic obstructive pulmonary disease, unspecified; G62.9 Polyneuropathy, unspecified; F31.9 Bipolar disorder, unspecified; D69.6 Thrombocytopenia, unspecified; I25.10 Atherosclerotic heart disease of native coronary artery without angina pectoris; G89.4 Chronic pain syndrome; M19.90 Unspecified osteoarthritis, unspecified site; M81.0 Age-related osteoporosis without current pathological fracture; F03.90 Unspecified dementia, unspecified severity, without behavioral disturbance, psychotic disturbance, mood disturbance, and anxiety; Z87.11 Personal history of peptic ulcer disease; Z87.891 Personal history of nicotine dependence
CPT/HCPCS: 36415-UA; 80048-TC; 80061-TC; 82948-90; 85025-TC; J2060

== ENCOUNTER 2018-02-03 18:20 | Inpatient (IN) | payer MEDICARE, OTHER ==
--- NOTE | 2018-02-03 19:00 | ED Physician Chart ---
ED Chief Complaint/HPI - Patient Information Date Seen:: 02/03/18 Time Seen:: 18:30 Chief Complaint:: Agitation History of Present Illness:: onset x 2 days of agitation and aggressive behavior; no report of trauma, SIs, H /As, neck pain, C/P, SOB, Abd. Pain, A/N/V/D/C, fever, chills, or urinary s/s Allergies:: Allergies Allergy/AdvReac Type Severity Reaction Status Date / Time haloperidol [From Haldol] Allergy Verified 09/05/17 14:59 Penicillins Allergy Verified 09/05/17 14:59 Vitals:: Vital Signs - 8 hr 02/03/18 18:28 Temp 98.0 F HR 84 RR 16 BP 137/80 O2 Sat % 95 Historian:: Patient, EMS Review:: Nurse's Note Reviewed, Old Chart Reviewed, EMS run form Reviewed ED Review of Systems - Review of Systems General/Constitutional: No fever, No chills, No weight loss, No weakness, No diaphoresis, No edema, No loss of appetite Skin: No skin lesions, No rash, No bruising Head: No headache, No light-headedness Eyes: No loss of vision, No pain, No diplopia ENT: No earache, No nasal drainage, No sore throat, No tinnitus Neck: No neck pain, No swelling, No thyromegaly, No stiffness, No mass noted Cardio Vascular: No chest pain, No palpitations, No PND, No orthopnea, No edema Pulmonary: No SOB, No cough, No sputum, No wheezing GI: No nausea, No vomiting, No diarrhea, No pain, No melena, No hematochezia, No constipation, No hematemesis G/U: No dysuria, No frequency, No hematuria Musculoskeletal: No bone or joint pain, No back pain, No muscle pain Endocrine: No polyuria, No polydipsia Psychiatric: Prior psych history, Depression, Anxiety, No suicidal ideation, No homicidal ideation, No auditory hallucination, No visual hallucination Hematopoietic: No bruising, No lymphadenopathy Allergic/Immuno: No urticaria, No angioedema Neurological: No syncope, No focal symptoms, No weakness, No paresthesia, No headache, Seizure, No dizziness, No confusion, No vertigo ED Past Medical History - Past Medical History Obtainable: Yes Past Medical History: HTN, Asthma/COPD, PUD/GERD, Seizures Family History: HTN Social History: Non Smoker, No Alcohol, No Drug Use, Single, Care Facility Surgical History: None Psychiatricy History: Schizophrenia Medication: Reviewed Family Medical History - Family Member Mother History Unknown: Yes Ethnicity: Unknown Living Status: Unknown Hx Family Cancer: (unknown) Hx Family Coronary Artery Disease: (unknown) Hx Family Congestive Heart Failure: (unknown) Hx Family Hypertension: (unknown) Hx Family Stroke: (unknown) Hx Family Diabetes: (unknown) Hx Family Seizures: (unknown) Hx Family Dementia: (unknown) Hx Family AIDS: (unknown) Hx Family COPD: (unknown) Hx Family Hepatitis: (unknown) Hx Family Psychiatric Problems: (unknown) Hx Family Tuberculosis: (unknown) ED Physical Exam - Physical Examination General/Constitutional: Awake, Well-developed, well-nourished, Alert, No distress, GCS 15, Non-toxic appearing, Ambulatory Head: Atraumatic Eyes: Lids, conjuctiva normal, PERRL, EOMI Skin: Nl inspection, No rash, No skin lesions, No ecchymosis, Well hydrated, No lymphadenopathy ENMT: External ears, nose nl, TM canals nl, Nasal exam nl, Lips, teeth, gums nl , Oropharynx nl, Tonsils nl Neck: Nontender, Full ROM w/o pain, No JVD, No nuchal rigidity, No bruit, No mass, No stridor Respiratory: Nl effort/Exclusion, Clear to Auscultation, No Wheeze/Rhonchi/Rales Cardio Vascular: RRR, No murmur, gallop, rubs, NL S1 S2, Carotid/Femoral/Distal pulses equal bilaterally GI: No tenderness/rebounding/guarding, No organomegaly, No hernia, Normal BS's, Nondistended, No mass/bruits, No McBurney tenderness : No CVA tenderness Extremities: No tenderness or effusion, Full ROM, normal strength in all extremities, No edema, Normal digits & nails Neuro/Psych: Alert/oriented, DTR's symmetric, Normal sensory exam, Normal motor strength, Judgement/insight normal, Mood normal, Normal gait, No focal deficits Other Neuro/Psych comments:: + Psychomotor Agitation; no SIs; Mood/Affect: Labile Misc: Normal back, No paraspinal tenderness ED Labs/Radiology/EKG Results - Lab Results Comments:: Reviewed - EKG Interpretations EKG Time:: 19:00 Rate & Rhythm: 84; NSR Comments:: non-specific st-t changes ED Septic Shock - . Is Septic Shock (SBP<90, OR Lactate>4 mmol\L) present?: No - <6hrs of presentation: Vital Signs: Vital Signs - 8 hr 02/03/18 18:28 Temp 98.0 F HR 84 RR 16 BP 137/80 O2 Sat % 95 ED Reassessment (Disposition) - Reassessment Reassessment Condition:: Improved - Diagnosis Diagnosis:: Agitation; Medical Clearance; Psychosis; Bipolar Disorder; Schizophrenia - Aftercare/Follow up Instructions Aftercare/Follow-Up Instructions:: Counseled pt regarding lab results/diagnosis & need follow up, Counseled pt & family regarding lab results/diagnosis & need follow up - Patient Disposition Discharge/Transfer:: Acute Care w/in this hosp Admitted to:: [facility] Condition at Disposition:: Stable, Improved
[2018-02-03 19:26] LABS: % BASOPHILS 0.8 % (0.0-2.0); % EOSINOPHILS 1.3 % (0.0-5.0); % LYMPHOCYTES 23.6 % (20.0-50.0); % MONOCYTES 7.3 % (2.0-10.0); BASOPHILE ABSOLUTE 0.1 Th/cumm (0-0.2); EOSINOPHILE ABSOLUTE 0.1 Th/cmm (0.1-0.4); HEMATOCRIT 42.6 % (41.0-60); HEMOGLOBIN 14.3 gm/dL (12-16); LYMPHOCYTE ABSOLUTE 2.1 Th/cmm (1.5-3.0); MEAN CELL VOLUME 93.8 fl (81-100); MEAN CORPUSCULAR HEMOGLOBIN 31.6 pg (27.0-31.0); MEAN CORPUSCULAR HGB CONC 33.7 pg (28.0-36.0); MEAN PLATELET VOLUME 8.9 fl; MONOCYTE ABSOLUTE 0.6 Th/cmm (0.3-1.0); NEUTROPHILE ABSOLUTE 5.8 Th/cmm (1.8-8.0); PLATELET COUNT 198 Th/cmm (150-400); RED BLOOD COUNT 4.55 Mil/cmm (3.80-5.10); RED CELL DISTRIBUTION WIDTH 11.9 % (11.5-20.0); WHITE BLOOD COUNT 8.7 Th/cmm (4.8-10.8)
[2018-02-03 19:41] LABS: ACETAMINOPHEN < 10.0 ug/mL (10.0-30.0); ALB/GLOB RATIO 1.3 (1.0-1.8); ALBUMIN 3.8 gm/dL (3.7-5.3); ALKALINE PHOSPHATASE 122 U/L (34-104); ANION GAP 11.3 (7.0-16.0); BILIRUBIN,TOTAL 0.2 mg/dL (0.3-1.0); BUN - UREA NITROGEN 10 mg/dL (7-25); CALCIUM SERUM 9.5 mg/dL (8.6-10.3); CARBON DIOXIDE 25.9 mEq/L (21.0-31.0); CHLORIDE 101 mEq/L (98-107); CHOLESTEROL 140 mg/dL (<200); CREATININE - SERUM 0.3 mg/dL (0.6-1.2); GFR AFRICAN-AMERICAN > 60.0 ml/min (>90); GFR NON AFRICAN-AMERICAN > 60.0 ml/min; GLUCOSE 133 mg/dL (70-105); HDL -HIGH DENSITY LIPOPROTEIN 56 mg/dL (23-92); POTASSIUM SERUM 4.2 mEq/L (3.5-5.1); SALICYLATES (ASPIRIN) < 25.0 mg/L (30.0-100.0); SGOT 15 U/L (13-39); SGPT/ALT 17 U/L (7-52); SODIUM SERUM 134 mEq/L (136-145); TOTAL PROTEIN,SERUM 6.7 gm/dL (6.0-8.3); TRIGLYCERIDES 256 mg/dL (<150)
[2018-02-03 22:22] VITALS: BP 148/84
[2018-02-03] MEDS ORDERED: Magnesium Hydroxide (MOM) 30 mL UDC PO PRN (22:29)
[2018-02-03] MEDS ORDERED: Maalox 30 mL Cup PO PRN (22:29)
[2018-02-03] MEDS ORDERED: APAP/Codeine 300 mg/30 mg Tab PO PRN ×2 (22:29)
[2018-02-03] MEDS ORDERED: Albuterol/Ipratropium Neb 3 ML AERS HHN PRN (22:29)
[2018-02-04] MEDS: Multivitamin Tab PO SCH (09:03)
--- NOTE | 2018-02-05 00:53 | Progress Notes ---
DATE: 02/04/2018 INTERNAL MEDICINE CONSULTATION FOLLOWUP The patient is a 57-year-old female seen at [facility]. SYMPTOMS: Chronic shortness of breath, chronic cough, no nausea, no vomiting, extensive arthritis. PHYSICAL EXAMINATION: GENERAL: Average female in moderate amount of respiratory distress. VITAL SIGNS: Blood pressure of 140/80, heart rate 88, respiration rate of 18. SKIN: Show no cellulitis, no infection. HEENT: Normal conjunctivae. LUNGS: Show bilateral rhonchi, has crepitation, no bronchial breathing. HEART: First and second heart sounds normal. No gallops. Systolic present. ABDOMEN: Soft, bowel sounds present. EXTREMITIES: Show arthritis. NEUROLOGIC: The patient has psychosis. PLAN: Continue current medical management. Psych consult reviewed. JOB# [id number]
--- NOTE | 2018-02-05 01:11 | Consultation ---
DATE OF CONSULTATION: 02/03/2018 INTERNAL MEDICINE CONSULTATION HISTORY OF PRESENT ILLNESS: The patient is a 57-year-old female known to me, I am being the primary care physician. CURRENT MEDICAL PROBLEMS: Include COPD, chronic respiratory failure, coronary artery disease, peptic ulcer disease, gastritis, arthritis, osteoporosis, history of aortic aneurysm. SOCIAL HISTORY: Prolonged history of smoking. There is no history of drug or alcohol abuse. OBSTETRIC HISTORY: P2, plus 0. Menses are postmenopausal. REVIEW OF SYSTEMS: The patient has chronic cough, chronic shortness of breath, oxygen supplementation. No vomiting, no diarrhea, no melena, no hematochezia. Gait is unstable. PHYSICAL EXAMINATION: GENERAL: Average female in moderate amount of respiratory distress. VITAL SIGNS: Include a blood pressure of 140/80, heart rate 80, respiration rate of 18. SKIN: Show no cellulitis. HEENT: Normal conjunctivae. NECK: Supple. LUNGS: Showed bilateral rhonchi as crepitation, no bronchial breathing. HEART: First and second heart sounds are normal. No gallop. Systolic present. ABDOMEN: Soft, minimal epigastric tenderness. Bowel sounds are present and good. EXTREMITIES: Arthritis. NEUROLOGIC: The patient has advanced psychosis. LABS: Reviewed. CURRENT MEDICAL DIAGNOSES: Chronic respiratory failure, chronic obstructive pulmonary disease, congestive heart failure, coronary artery disease, peptic ulcer disease, arthritis, osteoporosis, and history of aortic aneurysm. TREATMENT PLAN: Continue current medical management. Psych consult reviewed. JOB# [id number]
--- NOTE | 2018-02-05 03:56 | Psychiatric Evaluation ---
DATE OF SERVICE: 02/04/2018 IDENTIFYING DATA: The patient is a 57-year-old woman, resident of [facility]. JUSTIFICATION FOR HOSPITALIZATION: The patient is admitted for her agitation, screaming and yelling. CHIEF COMPLAINT: "I can't stop getting upset, I need some medication like Prolixin." HISTORY OF PRESENT ILLNESS: This is the second psychiatric hospitalization for this patient who was under my care in 08/2017. The patient has been diagnosed to have schizophrenia, chronic paranoid type. The patient has been stating that even though she has been on several different medications, she is not feeling any better. She wants to be on the Prolixin. The patient has been diagnosed to have schizophrenia, chronic paranoid type and is reported to be yelling, screaming and could not contain herself. The patient's insight and judgment noted to be very much impaired, sleep and appetite are noted to be poor. PAST PSYCHIATRIC HISTORY: Please refer to the above. MEDICAL HISTORY: Physical examination is requested to be done by Dr. De La Cruz. SUBSTANCE ABUSE HISTORY: None. PHYSICAL OR SEXUAL ABUSE HISTORY: None. LEGAL PROBLEMS: None at this time. MENTAL STATUS EXAMINATION: The patient is a 57-year-old, looking older than her stated age, superficially cooperative. Eye contact is poor. Mood is noted to be irritable. Affect is constricted. Insight and judgment at this time are noted to be impaired. Impulse control is noted to be poor. The patient has paranoid delusions. The patient is getting easily upset. The patient is currently on gabapentin and risperidone 6 mg. The patient is stating that this medication is not working and she would like the medications to be changed to Prolixin. DIAGNOSTIC IMPRESSION: At the time of the admission: AXIS I: Schizophrenia, chronic paranoid type. AXIS II: None. AXIS III: As per Dr. De La Cruz. IMMEDIATE TREATMENT PLAN: The patient is going to be continued on the Risperdal and Depakote at the request of the patient, possibly the patient is going to be started on the Prolixin. JOB# [id number]
[2018-02-05] MEDS: Multivitamin Tab PO SCH (09:00)
--- NOTE | 2018-02-05 20:38 | Progress Notes ---
DATE: 02/05/2018 SUBJECTIVE: Staff was spoken to. The patient is interviewed. Mood is noted to be irritable. Affect is constricted. Insight and judgment at this time are noted to be still impaired. Impulse control is noted to be limited. Coping skills are noted to be limited. The patient has been having difficult time to cope with the stress. No side effects to the medications are noted. Continues to be very irritable and angry. ASSESSMENT: The patient is still grossly psychotic. PLAN: To continue the patient with the supportive therapy and followup. JOB# [id number]
--- NOTE | 2018-02-06 01:55 | Progress Notes ---
DATE: 02/05/2018 INTERNAL MEDICINE CONSULTATION FOLLOWUP The patient is a 57-year-old female patient of mine. CURRENT MEDICAL PROBLEMS: Include COPD, CHF, hypertension, coronary artery disease, peptic ulcer disease, gastritis, arthritis, osteoporosis. No new symptoms. Chronic shortness of breath. Oxygen supplementation and stable gait, no recent fall. OBJECTIVE: VITAL SIGNS: Stable. LUNGS: Show bilateral rhonchi as crepitation, no bronchial breathing. HEART: First and second heart sounds normal. No gallop. Systolic present. ABDOMEN: Soft. Bowel sounds present and good. EXTREMITIES: Show arthritis. NEUROLOGIC: The patient has no focal motor deficit. MEDICAL DIAGNOSES: Remains the same. PLAN: Continue current medical management. Psych consult reviewed. JOB# [id number]
[2018-02-06] MEDS: Multivitamin Tab PO SCH (08:41)
--- NOTE | 2018-02-07 02:51 | Progress Notes ---
DATE: 02/06/2018 PSYCHIATRIC PROGRESS NOTE SUBJECTIVE: Staff was spoken to. The patient is interviewed. Mood is noted to be irritable. Affect is constricted. The patient's insight and judgment are noted to be still impaired. Impulse control is noted to be poor. The patient has been on risperidone and valproic acid. The patient is stating that she needed some stronger medications. Coping skills are noted to be poor at this time. ASSESSMENT: The patient is still impulsive and having acute mood swings. PLAN: Continue the patient with the current medications and follow up. JOB# [id number]
--- NOTE | 2018-02-07 04:03 | Progress Notes ---
DATE: 02/06/2018 INTERNAL MEDICINE CONSULTATION FOLLOWUP The patient is a 57-year-old female patient of mine. Current medical problems include COPD, CHF, coronary artery disease, peptic ulcer disease, gastritis, arthritis, osteoporosis, history of aortic aneurysm. CHIEF COMPLAINT: Chronic shortness of breath, chronic cough. No vomiting. No diarrhea. No melena. No hematochezia. No fall. PHYSICAL EXAMINATION: VITAL SIGNS: Stable. LUNGS: Showed bilateral rhonchi, has crepitation. No bronchial breathing. HEART: First and second heart sounds normal. No gallop. Systolic present. ABDOMEN: Soft. Bowel sounds present and good. EXTREMITIES: Show arthritis. NEUROLOGIC: The patient has no focal motor deficits. PLAN: Continue current medical management. Psych consult reviewed. JOB# [id number]
[2018-02-07] MEDS: Multivitamin Tab PO SCH (08:38)
--- NOTE | 2018-02-07 13:06 | Consultation ---
DATE OF CONSULTATION: 02/05/2018 REFERRING PHYSICIAN: Arturo Manriquez MD TYPE OF CONSULTATION: Psychology. HISTORY OF PRESENT ILLNESS: The patient is a 57-year-old female. The patient is a resident of [facility]. The following is by record review and by the patient's self-report. The patient is being admitted due to increased agitation as well as screaming and yelling episodes. The patient presents as difficult to de-escalate. The staff at the patient's facility report that she has a history of schizophrenia, chronic paranoid type and is unable to be contained with persistent yelling episodes. The patient denied any suicidal ideation, plan or intention. PAST MEDICAL HISTORY: Please see history and physical by Dr. De La Cruz. PAST PSYCHIATRIC HISTORY: History of schizophrenia, chronic paranoid type. The patient is under the care of a psychiatrist at her placement. SUBSTANCE ABUSE HISTORY: None. PSYCHOSOCIAL HISTORY: The patient did not answer questions about occupational or educational history or christianity affiliation. The patient denied any history of physical or sexual abuse. The patient states no current legal problems. The patient was unable to identify any individuals or family members or friends that are part of her support system. MENTAL STATUS EXAMINATION: The patient appears to be her stated age. The patient's attitude is superficially cooperative. Eye contact is poor. Speech is pressured. Mood is irritable. Affect is constricted. The patient's thought process shows to be tangential. The patient denied any auditory or visual hallucinations, however the patient is demonstrating paranoid ideation. The patient's behavior has been difficult to redirect. Impulse control is poor. Concentration is poor. The patient did not participate in the memory assessment. Sensorium is alert and oriented to self only. The patient did not participate in the interpretation of proverbs. Insight is impaired. Judgment is impaired. DIAGNOSTIC IMPRESSION: AXIS I: Schizophrenia, chronic paranoid type. AXIS II: Deferred. AXIS III: Per Dr. De La Cruz. TREATMENT PLAN: The patient has been seen by Dr. Manriquez for psychiatric evaluation and for the management of the patient's psychotropic medications. According to the attending psychiatrist, the patient is continued on Risperdal and Depakote and possibly started on Prolixin. The patient acknowledges that she is unable to calm herself down. We will provide supportive psychotherapy to include de-escalation and limit setting as well as stress management for the patient to increase her frustration tolerance. We will encourage the patient to be able to demonstrate emotional and self-regulation prior to her discharge. We will provide coping strategies for chronic severe mental illness. We will encourage the patient to be able to verbalize her concerns versus verbally acting out. We will provide reality orientation, differentiation and integration. Thank you, Dr. Manriquez for this consult and the opportunity to participate in this patient's care. JOB# [id number] NICKIE
--- NOTE | 2018-02-07 20:26 | Progress Notes ---
DATE: 02/07/2018 INTERNAL MEDICINE CONSULTATION FOLLOWUP The patient is a 57-year-old female. Current medical problems include COPD, congestive heart failure, coronary artery disease, peptic ulcer disease, gastritis, arthritis, osteoporosis, history of aortic aneurysm, no new symptoms, chronic shortness of breath, chronic cough, no nausea, no vomiting. No recent fall. PHYSICAL EXAMINATION: VITAL SIGNS: Stable. LUNGS: Showed bilateral rhonchi, crepitation, no bronchial breathing. HEART: First and second heart sounds are normal. No gallop. Systolic present. ABDOMEN: Soft. Bowel sounds good. EXTREMITIES: Show arthritis. NEUROLOGIC: The patient has advanced dementia. Continue current medical management and psych consult reviewed. JOB# [id number]
--- NOTE | 2018-02-08 00:51 | Progress Notes ---
DATE: 02/07/2018 PSYCHIATRIC PROGRESS NOTE SUBJECTIVE: Staff was spoken to. The patient is interviewed. Mood is noted to be irritable. Affect is constricted. The patient is currently on valproic acid and risperidone. The patient is stating that she needs some ana capsules. The patient is not able to contract for safety. No side effects to the medications are noted. The patient has been having difficult time to cope with the stress. ASSESSMENT: The patient is still psychotic and responding to internal stimuli. PLAN: To continue the patient with the supportive therapy. Encouraged the patient to verbalize the concerns rather than to act out. JOB# [id number]
[2018-02-08] MEDS: Multivitamin Tab PO SCH (09:47)
--- NOTE | 2018-02-08 14:10 | Progress Notes ---
DATE: 02/08/2018 INTERNAL MEDICINE CONSULTATION FOLLOWUP SUBJECTIVE: The patient is a 57-year-old female, current medical problems include COPD, CHF, chronic respiratory failure, coronary artery disease, peptic ulcer disease, gastritis, arthritis, osteoporosis, history of abdominal aortic aneurysm symptoms. No new symptoms. Chronic cough, chronic shortness of breath. No nausea, no vomiting. No recent fall. No acute infection. PHYSICAL EXAMINATION: VITAL SIGNS: Stable. LUNGS: Showed bilateral rhonchi as well as crepitation. No bronchial breathing. HEART: First and second heart sounds normal. No gallop. Systolic present. ABDOMEN: Soft. Bowel sounds present. EXTREMITIES: Show arthritis. NEUROLOGIC: The patient has advanced psychosis and dementia. PLAN: Continue current medical management. Psych consult reviewed. JOB# [id number]
--- NOTE | 2018-02-09 04:05 | Progress Notes ---
DATE: 02/08/2018 SUBJECTIVE: Staff was spoken to. The patient is interviewed. Mood is noted to be anxious. Affect is constricted. The patient is pacing on the unit in her wheelchair. Coping skills are noted to be still poor. Continues to be paranoid. No side effects to the medications are noted at this time. ASSESSMENT: The patient is still psychotic. PLAN: To continue the patient with the current medications. I encouraged the patient to verbalize the concerns rather than to act out. JOB# [id number]
[2018-02-09] MEDS: Multivitamin Tab PO SCH (08:32)
--- NOTE | 2018-02-10 02:22 | Progress Notes ---
DATE: 02/09/2018 SUBJECTIVE: Staff was spoken to. The patient is interviewed. Mood swings are still a concern. No side effects to the medications are noted. Insight and judgment are noted to be still impaired. Impulse control is noted to be limited. In view of her poor coping skills and acute mood swings, it is decided to increase the dose on the Depakote to 250 mg 3 times a day and follow the patient up. [facility]# [id number]
--- NOTE | 2018-02-10 06:14 | Progress Notes ---
DATE: 02/09/2018 SUBJECTIVE: The patient is a 57-year-old female. Current medical problems include COPD, CHF, coronary artery disease, peptic ulcer disease, gastritis, arthritis, history of abdominal aortic aneurysm symptoms. No new symptoms, chronic cough, occasional wheezing, no nausea, no vomiting. Gait is unstable. PHYSICAL EXAMINATION: VITAL SIGNS: Stable. LUNGS: Show bilateral rhonchi, occasional crepitation, no bronchial breathing. HEART: First and second heart sounds are normal. No murmur. No gallop. Systolic present. ABDOMEN: Soft, minimal epigastric tenderness. Bowel sounds are present and good. EXTREMITIES: Show arthritis. NEUROLOGIC: The patient has no focal motor deficit. MEDICAL DIAGNOSES: Remain the same. PLAN: Continue current medical management. Psych consult reviewed. JOB# [id number]
[2018-02-10] MEDS: Multivitamin Tab PO SCH (08:53)
--- NOTE | 2018-02-10 13:49 | Progress Notes ---
DATE: 02/10/2018 SUBJECTIVE: Staff was spoken to. The patient is interviewed. Mood is noted to be irritable. Affect is constricted. Insight and judgment at this time are noted to be still impaired. Impulse control is noted to be poor. The patient is a little bit wobbly today. The patient's Depakote has been increased. Plan to get the Depakote level and I encouraged the patient to verbalize the concerns rather than to act out. JOB# [id number]
--- NOTE | 2018-02-11 06:31 | Consultation ---
DATE OF CONSULTATION: 02/10/2018 INTERNAL MEDICINE CONSULTATION HISTORY OF PRESENT ILLNESS: The patient is a 57-year-old female. Current medical problems include history of CHF, hypertension, coronary artery disease, peptic ulcer disease, gastritis, arthritis, osteoporosis. No new symptoms. PHYSICAL EXAMINATION: VITAL SIGNS: Stable. LUNGS: Show bilateral rhonchi, has crepitation, no bronchial breathing. HEART: First and second heart sounds are normal. No gallops. Systolic present. ABDOMEN: Soft, minimal epigastric tenderness. ABDOMEN: Soft. Bowel sounds present. EXTREMITIES: Show arthritis. NEUROLOGIC: The patient has no focal motor deficits. MEDICAL DIAGNOSES: Remain the same. PLAN: Continue current medical management. JOB# [id number]
[2018-02-11] MEDS: Multivitamin Tab PO SCH (09:03)
--- NOTE | 2018-02-12 03:28 | Progress Notes ---
DATE: 02/11/2018 SUBJECTIVE: Staff was spoken to. The patient is interviewed. Mood is noted to be irritable. Affect is constricted. The patient is reported to be screaming and yelling. The patient has been on a high dose of the Risperdal, but does not seem to be getting any benefit and hence it is decided to decrease the dose on the Risperdal to 2 mg at bedtime. Start the patient with Zyprexa 2.5 mg b.i.d. The patient is going to be taken off of the Risperdal. The patient at this time is noted to be grossly psychotic and impulsive and is not ready to be discharged to a lower level of care. JOB# [id number]
--- NOTE | 2018-02-12 03:33 | Progress Notes ---
DATE: 02/11/2018 INTERNAL MEDICINE CONSULTATION FOLLOWUP SUBJECTIVE: The patient is a 57-year-old female. Current medical problems include COPD, CHF, hypertension, coronary artery disease, peptic ulcer disease, gastritis, arthritis, and osteoporosis. CHIEF COMPLAINT: No new symptoms, chronic shortness of breath, occasional cough, no nausea, no vomiting. OBJECTIVE: VITAL SIGNS: Stable. LUNGS: Show bilateral rhonchi as well as crepitation, no bronchial breathing. HEART: First and second heart sounds normal. No gallops. Systolic present. ABDOMEN: Soft. Bowel sounds are present and good. EXTREMITIES: Show arthritis. NEUROLOGIC: The patient has advanced psychosis. PLAN: Continue current medical management. Psych consult reviewed. JOB# [id number]
[2018-02-12] MEDS: Multivitamin Tab PO SCH (09:18)
--- NOTE | 2018-02-13 04:37 | Progress Notes ---
DATE: 02/12/2018 SUBJECTIVE: Staff was spoken to. The patient is interviewed. Mood is elevated, irritable. Affect is constricted. Insight and judgment are noted to be still impaired and impulse control seems to be fair today. The patient has been able to tolerate the Zyprexa and the patient is going to be taken off of the Risperdal and the patient is going to be placed on Zyprexa 5 mg twice a day and followed up with the supportive therapy. JOB# [id number]
--- NOTE | 2018-02-13 06:32 | Progress Notes ---
DATE: 02/12/2018 INTERNAL MEDICINE CONSULTATION FOLLOWUP SUBJECTIVE: The patient is a 57-year-old female with current medical problems include COPD, CHF, hypertension, coronary artery disease, peptic ulcer disease, gastritis, arthritis, osteoporosis, history of aneurysm. CHIEF COMPLAINT: No new symptoms, chronic shortness of breath, chronic cough, no nausea, no vomiting. OBJECTIVE: VITAL SIGNS: Stable. LUNGS: Show bilateral rhonchi, occasional crepitation, no bronchial breathing. HEART: First and second heart sounds normal. No gallop. No systolic murmur present. ABDOMEN: Soft. Bowel sounds present. EXTREMITIES: Show arthritis. NEUROLOGIC: The patient has psychosis. PLAN: Continue current medical management. Psych consult reviewed. JOB# [id number]
[2018-02-13] MEDS: Multivitamin Tab PO SCH (09:14)
--- NOTE | 2018-02-14 00:47 | Progress Notes ---
DATE: 02/13/2018 SUBJECTIVE: The patient is a 57-year-old female resident. CURRENT MEDICAL PROBLEMS: Include COPD, CHF, hypertension, coronary artery disease, peptic ulcer disease, gastritis, arthritis, and osteoporosis. Symptoms: No new symptoms. Continues to have a chronic shortness of breath, cough. No vomiting or diarrhea. No melena, no recent fall. OBJECTIVE: VITAL SIGNS: Stable. LUNGS: Show bilateral rhonchi, crepitation, no bronchial breathing. HEART: First and second heart sound normal. Systolic present. ABDOMEN: Soft, bowel sounds present. EXTREMITIES: Show arthritis. NEUROLOGIC: The patient has psychosis. PLAN: Continue current medical management. Psych consult reviewed. JOB# [id number]
--- NOTE | 2018-02-14 04:12 | Progress Notes ---
DATE: 02/13/2018 PSYCHIATRIC PROGRESS NOTE SUBJECTIVE: Staff was spoken to. The patient is interviewed. Mood is noted to be anxious. Affect is appropriate. Not suicidal or homicidal. Insight and judgment are noted to be fair. Impulse control seems to be fair. Coping skills are also noted to be fair. No side effects to medications are noted. No major behavioral problems are noted. The patient has paranoia, but mood swings are coming under control. The patient is not presenting with any threats to harm self or others. ASSESSMENT: The patient is stabilizing. PLAN: Discharge the patient today for followup on outpatient basis. JOB# [id number]
== END 2018-02-13 14:00 | DRG 885 ==
LOC: ER 18:20 → GERO 20:55
PROVIDERS: ADMIT Psychiatry & Neurology Psychiatry; ATTEND Psychiatry & Neurology Psychiatry
DX: F20.0 Paranoid schizophrenia (principal); J96.10 Chronic respiratory failure, unspecified whether with hypoxia or hypercapnia; I11.0 Hypertensive heart disease with heart failure; J44.9 Chronic obstructive pulmonary disease, unspecified; I50.9 Heart failure, unspecified; K27.9 Peptic ulcer, site unspecified, unspecified as acute or chronic, without hemorrhage or perforation; I25.10 Atherosclerotic heart disease of native coronary artery without angina pectoris; M19.90 Unspecified osteoarthritis, unspecified site; M81.0 Age-related osteoporosis without current pathological fracture; K21.9 Gastro-esophageal reflux disease without esophagitis; K29.70 Gastritis, unspecified, without bleeding; R56.9 Unspecified convulsions; Z82.49 Family history of ischemic heart disease and other diseases of the circulatory system; Z88.0 Allergy status to penicillin; Z88.8 Allergy status to other drugs, medicaments and biological substances
CPT/HCPCS: 36415-UA; 80053-TC; 80061-TC; 80164-TC; 80320-TC; 80329-TC; 83036-90; 84443-TC; 84484-TC; 85025-TC; 86592-TC; 93005; Z7610